=== PATIENT | male | born 1940 | race Caucasian/White ===

== ENCOUNTER 2021-07-29 12:53 | Emergency (ER) | payer MEDICARE, SELFPAY ==
[2021-07-29 13:02] VITALS: BP 130/54; PULSE 85; RESP 18; TEMP 36.7; O2SAT 98
--- NOTE | 2021-07-29 13:03 | ED.FEMALEGU ---
HPI - Female Genitourinary General Chief complaint: Urogenital-Male Stated complaint: UTI Time Seen by Provider: 07/29/21 13:03 Source: patient and RN notes reviewed History of Present Illness HPI Narrative: Patient is a 80-year-old male who presents the urgent care with complaints of possible UTI. Patient states that for the last 2 to 3 days he has had chills, fever, decreased urinary output and dysuria. Patient also reports of some intermittent nausea without vomiting or abdominal pain. Patient denies of any low back pain. States that he does not have a doctor and is currently not on any medications. States that he does have a history of kidney stone but otherwise is pretty healthy . Patient has taken Tylenol for his symptoms. No other acute complaints. No acute distress noted. Patient aware of the plan of care. Some parts of this dictation were generated by voice recognition software and may contain typographical and/or grammatical inaccuracies. Related Data Allergies Allergy/AdvReac Type Severity Reaction Status Date / Time No Known Allergies Allergy Verified 07/29/21 13:14 Review of Systems Review of Systems: CONSTITUTIONAL: Reports of fever, chills, sweats EYES: Denies visual changes, redness, or discharge. ENT: Denies rhinorrhea, congestion, sore throat, or otalgia. CARDIOVASCULAR: Denies chest pain, palpitations, or edema. RESPIRATORY: Denies cough or dyspnea. GASTROINTESTINAL: Denies abdominal pain, nausea, vomiting, or diarrhea. GENITOURINARY: Reports of dysuria, dark urine and decreased urinary output SKIN: Denies rash or itching. MUSCULOSKELETAL: Denies back pain, joint pain, or myalgia. NEUROLOGIC: Denies headache, numbness, or weakness. All other systems reviewed are negative, except as documented in HPI. PMFSH Comments At the time of my signature, I reviewed and agree with the nursing past medical, surgical, social, and family history. There is no relevant family history pertinent to the patient complaint. Exam Narrative: GENERAL: This is a well-nourished, well-developed patient, in no apparent distress. HEAD: normocephalic, atraumatic. EYES: PERRL. Sclera clear/white. Vision is grossly intact. EARS: External ears normal NOSE: External nose normal with no obvious nasal discharge, nares without redness, no rhinorrhea. THROAT: Mucous membranes moist NECK: Neck supple CARDIOVASCULAR: Regular rate and rhythm without murmurs, gallops, or rubs. RESPIRATORY: Clear to auscultation. Breath sounds equal bilaterally. No wheezes, rales, or rhonchi. GASTROINTESTINAL: Abdomen soft, non-tender, nondistended. Bowel sounds are active. No guarding. SKIN: warm, intact with no suspicious lesions or rash, good texture and turgor. NEURO: awake, alert, and oriented to person, place and time. There were no obvious focal neurologic abnormalities. EXTREMITIES: No clubbing, cyanosis, or edema. BACK: Negative bilateral CVA tenderness Course Vital Signs Vital signs: Vital Signs Temperature 98.1 F 07/29/21 13:02 Pulse Rate 85 07/29/21 13:02 Respiratory Rate 18 07/29/21 13:02 Blood Pressure 130/54 L 07/29/21 13:02 Pulse Oximetry 98 07/29/21 13:02 Temperature 98.1 F 07/29/21 13:02 Pulse Rate 85 07/29/21 13:02 Respiratory Rate 18 07/29/21 13:02 Blood Pressure 130/54 L 07/29/21 13:02 Pulse Oximetry 98 07/29/21 13:02 Reviewed MDM - Female Genitourinary MDM Narrative Medical decision making narrative: Reviewed lab results with the patient. He is aware that urine analysis is indicative of a urinary tract infection. Advised the patient to complete oral antibiotic regimen as prescribed. We will culture the urine and call if medication needs to be changed, based on culture results. Increase your water intake and avoid sugary and caffeinated drinks. Use Tylenol/ibuprofen as needed. Be aware that our facility does not do lab work and therefore cannot fully evaluate the degree of infection. Ther
== END 2021-07-29 13:30 | disposition home or self-care (01) ==
PROVIDERS: Emergency Provider Nurse Practitioner Family
DX: N39.0 Urinary tract infection, site not specified (principal)
CPT/HCPCS: 81003; 87077; 87086; 87186; 99213; G0463

== ENCOUNTER 2021-09-09 10:38 | Emergency (ER) | payer MEDICARE, OTHER, SELFPAY ==
[2021-09-09 10:45] VITALS: BP 194/68; PULSE 82; RESP 16; TEMP 36.7; O2SAT 95
--- NOTE | 2021-09-09 10:46 | ED.MALEGU ---
HPI - Male Genitourinary General Chief complaint: Urogenital-Male Stated complaint: poss uti Time Seen by Provider: 09/09/21 10:46 Source: patient and RN notes reviewed History of Present Illness HPI Narrative: Patient is a 80-year-old male who presents the urgent care with complaints of a possible UTI. Patient states that he started having a dysuria on Sunday and has progressively gotten worse since then. Patient did obtain a PCP however has not established care. Patient denies of any fever, chills, nausea, vomiting, abdominal pain. Patient was seen at our facility on July 29 and given sulfa for his UTI that grew E. coli. Patient states after the antibiotic he felt better than he had felt in a very long time . No other acute complaints. No acute distress noted. Patient read the plan of care. Some parts of this dictation were generated by voice recognition software and may contain typographical and/or grammatical inaccuracies. Related Data Allergies Allergy/AdvReac Type Severity Reaction Status Date / Time No Known Allergies Allergy Verified 09/09/21 10:49 Review of Systems Review of Systems: CONSTITUTIONAL: Denies fever, chills, or sweats. EYES: Denies visual changes, redness, or discharge. ENT: Denies rhinorrhea, congestion, sore throat, or otalgia. CARDIOVASCULAR: Denies chest pain, palpitations, or edema. RESPIRATORY: Denies cough or dyspnea. GASTROINTESTINAL: Denies abdominal pain, nausea, vomiting, or diarrhea. GENITOURINARY: Reports of dysuria SKIN: Denies rash or itching. MUSCULOSKELETAL: Denies back pain, joint pain, or myalgia. NEUROLOGIC: Denies headache, numbness, or weakness. All other systems reviewed are negative, except as documented in HPI. PMFSH Comments At the time of my signature, I reviewed and agree with the nursing past medical, surgical, social, and family history. There is no relevant family history pertinent to the patient complaint. Exam Narrative: GENERAL: This is a well-nourished, well-developed patient, in no apparent distress. HEAD: normocephalic, atraumatic. EYES: PERRL. Sclera clear/white. Vision is grossly intact. EARS: External ears normal NOSE: External nose normal with no obvious nasal discharge, nares without redness, no rhinorrhea. THROAT: Mucous membranes moist NECK: Neck supple CARDIOVASCULAR: Regular rate and rhythm without murmurs, gallops, or rubs. RESPIRATORY: Clear to auscultation. Breath sounds equal bilaterally. No wheezes, rales, or rhonchi. GASTROINTESTINAL: Abdomen soft, non-tender, nondistended. Bowel sounds are active. SKIN: warm, intact with no suspicious lesions or rash, good texture and turgor. NEURO: awake, alert, and oriented to person, place and time. There were no obvious focal neurologic abnormalities. EXTREMITIES: No clubbing, cyanosis, or edema. BACK: Negative bilateral CVA tenderness Course Vital Signs Vital signs: Vital Signs Temperature 98.1 F 09/09/21 10:45 Pulse Rate 82 09/09/21 10:45 Respiratory Rate 16 09/09/21 10:45 Blood Pressure 194/68 H 09/09/21 10:45 Pulse Oximetry 95 09/09/21 10:45 Temperature 98.1 F 09/09/21 10:45 Pulse Rate 82 09/09/21 10:45 Respiratory Rate 16 09/09/21 10:45 Blood Pressure 194/68 H 09/09/21 10:45 Pulse Oximetry 95 09/09/21 10:45 Reviewed-patient is informed that they may have pre-hypertension or hypertension based on a blood pressure reading in the department. I recommend the patient call the primary care provider listed on their discharge instructions or a physician of their choice this week to arrange follow-up for further evaluation of possible pre-hypertension or hypertension. MDM - Male Genitourinary MDM Narrative Medical decision making narrative: Reviewed lab results with the patient. He is aware that urine analysis is indicative of a urinary tract infection. We will culture the urine and call if medication needs to be changed, based on culture results. Advised the
== END 2021-09-09 11:09 | disposition home or self-care (01) ==
PROVIDERS: Emergency Provider Nurse Practitioner Family
DX: N39.0 Urinary tract infection, site not specified (principal)
CPT/HCPCS: 81003; 87077; 87086; 87186; 99213; G0463